=== PATIENT | female | born 1955 | race Caucasian/White ===

== ENCOUNTER 2021-07-16 14:40 | Emergency (ER) | payer MEDICARE, OTHER ==
[2021-07-16] MEDS ORDERED: HYDROcodone/Acetaminophen 10/325 mg Tablet ONE (15:11)
[2021-07-16] MEDS ORDERED: Ibuprofen 800 MG TAB ONE (15:11)
== END 2021-07-16 15:50 | disposition home or self-care (01) ==
LOC: BURERS 14:40
DX: S20.212A Contusion of left front wall of thorax, initial encounter (principal); M06.9 Rheumatoid arthritis, unspecified; E11.9 Type 2 diabetes mellitus without complications; I10 Essential (primary) hypertension; W05.0XXA Fall from non-moving wheelchair, initial encounter
CPT/HCPCS: 71045